=== PATIENT | female | born 1955 | race African-American/Black ===

== ENCOUNTER 2017-08-07 07:41 | Inpatient (IN) ==
[2017-08-07] MEDS ORDERED: DILTIAZEM 50 MG/10 ML VIAL IV STA ×2 (07:59→09:28)
[2017-08-07] MEDS ORDERED: ONDANSETRON 4 MG/2 ML VIAL IV STA (07:59)
[2017-08-07] MEDS ORDERED: ONDANSETRON 4 MG/2 ML VIAL ONE (08:04)
[2017-08-07] MEDS ORDERED: DILTIAZEM 50 MG/10 ML VIAL IV ONE (08:04)
[2017-08-07 08:27] LABS: Basophils % 0.3 % (0.0-0.8); Eosinophils # 0.1 10*3/uL (0.0-0.87); Eosinophils % 0.4 % (0.00-10.9); Hematocrit 34.8 VOL% (35.7-47.0); Hemoglobin 11.4 GM/DL (12.0-16.0); Immature Granulocytes % 0.8 %; Immature Granulocytes Absolute 0.09 #; Lymphocytes # 0.7 10*3/uL (1.4-4.0); Lymphocytes % 5.9 % (21.3-54.2); Mean Corpuscular HGB Conc 32.8 GM/DL (32-36); Mean Corpuscular Hemoglobin 28 PG (27-34); Mean Corpuscular Volume 85.1 FL (87-102); Mean Platelet Volume 10.4 FL (9.6-12.0); Monocytes # 0.7 10*3/uL (0.11-0.8); Monocytes % 6.6 % (1.7-12.7); Neutrophils # 9.6 10*3/uL (1.4-7.4); Platelet Count 241 T/CUMM (130-400); Red Blood Count 4.09 MC/CUMM (3.8-5.5); Red Cell Distribution Width 16.9 % (9.3-17.3); White Blood Count 11.1 T/CUMM (4-12)
--- NOTE | 2017-08-07 08:44 | XRay Report ---
Portable chest Date: 08/07/2017 Clinical history: Shortness of breath Comparison: 07/13/2015 Technique: Portable AP sitting chest Findings: Stable cardiomegaly in patient with prior median sternotomy and cardiac valve replacement. Persistent dilatation and uncoiling of the aorta with left subclavian atrioventricular AICD. Prominent scoliosis with associated deformity of the chest. No significant change in the appearance the lungs. Postoperative findings in the right axilla. Impression: No significant change in the appearance of the chest when compared to previous exam. Persistent cardiomegaly in patient with prior median sternotomy and cardiac valvuloplasty. Residual dilatation and uncoiling of the aorta in patient with known chronic aortic dissection. Stable left subclavian atrioventricular AICD. PROCEDURE INTERPRETED AT [facility] DEPARTMENT OF RADIOLOGY Final Report Signed by: Dr. Chanel Torres
[2017-08-07 08:46] LABS: PT Patient Result 199.3 SECS
[2017-08-07 08:48] LABS: INR > 20.0
[2017-08-07 08:50] LABS: Alanine Aminotransferase 13 U/L (13-56); Albumin 3.2 G/DL (3.4-5.0); Alkaline Phosphatase 110 U/L (45-117); Aspartate Amino Transferase 23 U/L (0-37); Blood Urea Nitrogen 19 MG/DL (7-18); Calcium 9.6 MG/DL (8.5-10.1); Glucose 114 MG/DL (74-106); Osmolality,Calculated 277.7 MOS/KG (273-304); Potassium 3.7 MMOL/L (3.5-5.1); Sodium 138 MMOL/L (136-145); Total Protein 8.2 G/DL (6.4-8.3); Troponin I Only < 0.015 NG/ML (0.00-0.045)
[2017-08-07] MEDS ORDERED: PHYTONADIONE 10 MG/1 ML AMP SUBCUT STA (08:55)
--- NOTE | 2017-08-07 09:12 | Emergency Department Note ---
Basil Menendez Emily, am scribing for, and in the presence of, Paulino Byrne MD 08:04. Chavez Menendez Phillip K, MD, personally performed the services described in this documentation, ascribed by Jeni Gracia in my presence, and it is both accurate and complete 912 . 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 Mode of Arrival: Stretcher Limitations: No Limitations Source: Patient - History of Present Illness HPI Narrative: Pt is a 62 y/o female who came to ED by EMS with c/o N/V/D that started 2 days ago. Pt reports stools are twice a day and loose but not watery and denies fever. Pt has pacemaker/defibrillator, AAA, and is on Coumadin and lanoxin. Pt denies smoking, eating any recent bad food, and abdomen pain. Pt takes daily medications but was unable to take them this morning. Pt also sees Dr. Leonard for scoliosis in which takes pain medication as needed. PMHx of Marfan syndrome, Afib with RVR, mitral valve replacement in 1998. Onset (ago): day(s) Consistency: constant Severity: mild, moderate Severity scale (1-10): 4 Quality: other (vomiting) Allergies/Adverse Reactions: Allergies Allergy/AdvReac Type Severity Reaction Status Date / Time No Known Allergies Allergy Verified 08/07/17 07:47 Home Medications: Home Medications Medication Instructions Recorded Confirmed Type Ascorbic Acid Tab [Vitamin C Tab] 1,000 mg PO BID tablet 07/13/15 06/10/17 Rx Atenolol [Tenormin] 100 mg PO DAILY #30 tablet 07/13/15 06/10/17 Rx Digoxin Tab [Lanoxin Tab] 0.125 mg PO DAILY@1300 07/13/15 06/10/17 History Fluticasone 50 Mcg Nasal [place] 2 spray BOTH NARES DAILY 07/13/15 06/10/17 History [Flonase Nasal [place]] Gabapentin 100 mg PO DAILY 07/13/15 06/10/17 History Hydrocodone/Acetaminophen 1 each PO Q6-8H PRN 07/13/15 06/10/17 History [Hydrocodon-Acetaminophen 5-300] Lisinopril 10 mg PO DAILY 07/13/15 06/10/17 History Potassium Chloride Cap/Tab [Micro 8 meq PO BID #60 capsule 07/13/15 06/10/17 Rx K] Promethazine/Phenyleph/Codeine 5 ml PO Q4H PRN 07/13/15 06/10/17 History [Promethazine VC/Codeine Syrup] Spironolactone [Aldactone] 25 mg PO DAILY #30 tablet 07/13/15 06/10/17 Rx Warfarin [Coumadin] 4 mg PO DAILY@1800 07/13/15 06/10/17 History dilTIAZem HCl [Diltiazem 24Hr ER] 240 mg PO DAILY 07/13/15 06/10/17 History tiZANidine [Zanaflex] 4 mg PO DAILY 07/13/15 06/10/17 History Oxycodone HCl/Acetaminophen 1 tablet PO BID 07/14/15 06/10/17 History [Oxycodone-Acetaminophen 10-325] Review of System - Review of System 12 point system: reviewed and no additional remarkable complaints except as stated - Review of System Constitutional: Absent: chills, fever Respiratory: Absent: respiratory distress Cardiovascular: Absent: chest pain Gastrointestinal: Present: nausea, vomiting, diarrhea (loose stools, not watery and twice a day). Absent: abdominal pain Genitourinary female: Absent: dysuria Musculoskeletal: Absent: arm pain, neck pain Skin: Absent: rash Neurological: Absent: headache Medical,Surgical,& Family Hx - Medical History HEENT: History of: Eye Problem (CATARACT LENS ON RIGHT EYE) Musculoskeletal: History of: Back/Neck Problems (SCOLIOSIS) - Surgical History Reproductive Surgeries: Surgical HX of;: Hysterectomy (FULL) - Family History Family History: Reports;: Family Cancer (MOTHER-LUNG CA), Family Heart Disease ( BROTHERS AND SISTERS) - Social History Smoking Status: Never smoker Frequency of Alcohol Use: None Type of Drug Use: None Marital Status: Single Lives With:: Alone Functional capacity: independent ambulation Exam Vital Signs: Vital Signs Temperature 97.9 F 08/07/17 07:39 Pulse Rate 103 H 08/07/17 07:39 Respiratory Rate 18 08/07/17 07:39 Blood Pressure 122/90 08/07/17 07:51 O2 Sat by Pulse Oximetry 93 L 08/07/17 07:39 - General General appearance: alert, in no apparent distress - Head Head exam: Present: atraumatic, normocephalic - Eye Eye exam: Present: PERRL, EOMI - ENT ENT exam: Present: mucous membranes moist. Absent: mucous membranes dry - Neck Neck exam: Present: full ROM - Chest Chest inspection: Present: symmetric chest wall rise - Respiratory Respiratory exam: Present: normal lung sounds bilaterally. Absent: respiratory distress - Cardiovascular Cardiovascular exam: Present: tachycardia, irregular rhythm, clicks (loud) - Abdominal Exam Abdominal exam: Present: soft. Absent: tenderness - Extremities Exam Extremities exam: Present: full ROM. Absent: pedal edema - Neurological Exam Neurological exam: Present: alert, oriented X3, CN II-XII intact - Psychiatric Psychiatric exam: Present: normal affect, normal mood - Skin Skin exam: Present: warm, dry Course Course Narrative: Patient will be admitted to the hospitalist. We have ordered vitamin K and fresh frozen plasma. Results - Labs CBC & BMP: 08/07/17 08:07 08/07/17 08:07 Lab Results: I have reviewed the patients labs Labs: Laboratory Tests 08/07/17 08:07 WBC 11.1 RBC 4.09 Hgb 11.4 L Hct 34.8 L MCV 85.1 L Plt Count 241 Neut % (Auto) 86.0 H Lymph % (Auto) 5.9 L Neut # (Auto) 9.6 H Lymph # (Auto) 0.7 L - Diagnostic Findings Procedure: Chest x-ray: report reviewed by me (No significant change in the appearance of the chest when compared to previous exam. Persistent cardiomegaly in the pt with prior median sternotomy and cardiac valvuloplasty. Residual dilatation and uncoiling of the aorta in pt with known chronic aortic dissection. Stable left subclavian atrioventricular AICD.) Disposition Clinical Impression: Coumadin toxicity, Vomiting Case discussed with: patient Disposition: Still a Patient Condition: Guarded Additional Instructions: Admit to the hospitalist.
[2017-08-07] MEDS ORDERED: PHYTONADIONE 10 MG/1 ML AMP ONE (09:33)
[2017-08-07 09:37] LABS: Apearance,Urine Slightly Hazy (Clear); Bacteria,Urine Occasional /HPF (Few); Bilirubin,Urine Negative (Negative); Blood, Urine Moderate mg/dL (Negative); Glucose,Urine (UA) Negative (Negative); Hyaline Casts,Urine 2 /LPF (0-3); Ketones,Urine Negative (Negative); Mucus,Urine Occasional /LPF (Occasional); Nitrite,Urine Negative (Negative); Protein,Urine 30 MG/DL; RBC,Urine 12 /HPF (0-4); Squamous Epithelial Cell,Urine Occasional /HPF (0-10); Urine Color Yellow (Yellow); Urine Specific Gravity 1.018 (1.001-1.035); Urine Urobilinogen < 2.0 EU/DL (0.2-1.0); WBC,Urine 1 /HPF (0-6)
--- NOTE | 2017-08-07 09:58 | Hospitalist History & Physical ---
<Kevin Larson - Last Filed: 08/07/17 09:39> Assessment and Plan - Time spent with patient Time spent with patient: Greater than 30 minutes (1) Atrial fibrillation with RVR Status: Acute Assessment and plan: Patient has a history of atrial fibrillation with RVR. She is chronically anticoagulated with warfarin. However patient was unable to tell me if she takes any rate controlling agents. She has been given 20 mg of diltiazem in the ED. We will give 0.5 mg of digoxin IV and start her on a diltiazem drip. She will be admitted to the ICU for close observation. (2) Marfan syndrome Status: Chronic Assessment and plan: Patient tells me she was diagnosed with Marfan syndrome in 1999. She does have 2 mechanical valve replacement and has been fairly well controlled with Coumadin. She tells me that her INR is generally between 3 and 4. She has developed a AAA. Will order an echocardiogram and abdominal ultrasound to confirm. Patient is followed by Dr. Gavino Villanueva as well as Dr. Champion at [facility]. (3) History of mitral valve replacement with mechanical valve Status: Acute Assessment and plan: Patient is a mechanical mitral valve secondary to Marfan syndrome. (4) History of mechanical aortic valve replacement Status: Acute Assessment and plan: Patient has a mechanical aortic valve secondary to Marfan syndrome. (5) Chronic anticoagulation Status: Chronic Assessment and plan: Patient is chronically anticoagulated with Coumadin secondary to mechanical valve replacement. She tells me she takes 4 mg M-F and 2 mg every Saturday and Saturday. (6) History of placement of internal cardiac defibrillator Status: Acute Assessment and plan: Secondary to ischemic cardiomyopathy. Patient is routinely followed by Dr. Gavino Villanueva. Will consult cardiology for assistance. (7) Coumadin toxicity Status: Acute Assessment and plan: INR greater than 20 on admission. Patient has been given 10 mg subcu of vitamin K and has been started on FFP in the ED. Of note, the patient was recently hospitalized at [facility] by 3 weeks ago and was likely getting some antibiotics while the year. This could elevate her INR levels. We will continue to treat and repeat INR daily. (8) Scoliosis Status: Acute Assessment and plan: Patient has a long history of scoliosis which contributes to chronic back pain. She is followed by Dr. sheets for pain management. History of Present Illness Chief complaint: N/V/D, fatigue History of present illness: Ms. Walter is a 62 year old -English female with a past medical history significant for Marfan syndrome, hypertension, hyperlipidemia, atrial fibrillation with RVR, abdominal aortic aneurysm, scoliosis who presents to the ED today via EMS with complaints of decreased appetite, nausea vomiting and diarrhea, and generalized fatigue having onset 3 days ago. Patient reports she has both an aortic and mitral valve mechanical replacement secondary to Marfan syndrome. She also has a AAA which, according to her associate sales representative at [facility], she is not currently a candidate for surgical repair due to malnutrition. Patient states that she has been worried about her heart condition as well as needing to gain enough weight to be able to undergo surgical repair. She comes in today complaining of decreased appetite with associated lightheadedness, nausea , vomiting and diarrhea. She states she has not been able to take any of her medications this morning due to her nausea. On exam, the patient is severely malnourished and in atrial fibrillation with RVR. She does not appear to be any acute medical distress. She denies any headache, chest pain, shortness of breath, blurry vision, abdominal pain, lower extremity edema. She does however complain of back pain related to her scoliosis. Patient is followed by a PCP in [place]. Dr. Gavino Villanueva is her primary associate sales representative. And a Dr. Champion, director cardiac, at [facility]. Patient's lab work is as follows: WBC 11.1, hemoglobin 11.4, hematocrit 34.8, platelets 241, INR > 20, BUN 19, creatinine 0.90, serum glucose 114, albumin 3.2, troponin I < 0.015. Urinalysis negative for infection. Digoxin level was within normal limits. This case has been discussed both with Dr. Byrne, ER physician, and Dr. Lezama , admitting physician, and patient will be admitted to the hospital medicine service for further evaluation and treatment. CODE STATUS has been discussed; patient is a full code. Home medications have been reviewed and reconciled. Home Medications Medication Instructions Recorded Confirmed Type Ascorbic Acid Tab [Vitamin C Tab] 1,000 mg PO BID tablet 07/13/15 08/07/17 Rx Digoxin Tab [Lanoxin Tab] 0.125 mg PO DAILY@1300 07/13/15 08/07/17 History Fluticasone 50 Mcg Nasal [place] 2 spray BOTH NARES DAILY PRN 07/13/15 08/07/17 History [Flonase Nasal [place]] Lisinopril 10 mg PO QPM 07/13/15 08/07/17 History Warfarin [Coumadin] 4 mg PO MOTUWETHFR@1800 07/13/15 08/07/17 History dilTIAZem HCl [Diltiazem 24Hr ER] 240 mg PO QPM 07/13/15 08/07/17 History Oxycodone HCl/Acetaminophen 1 tablet PO BID 07/14/15 08/07/17 History [Oxycodone-Acetaminophen 10-325] Amiodarone Tab [Cordarone Tab] 200 mg PO QPM 08/07/17 08/07/17 History Atenolol [Tenormin] 100 mg PO QPM 08/07/17 08/07/17 History Cyanocobalamin Inj [Vitamin B12 1,000 mcg IM Q14D 08/07/17 08/07/17 History Inj] Potassium Chloride Cap/Tab [Micro 8 meq PO QPM 08/07/17 08/07/17 History K] Spironolactone [Aldactone] 25 mg PO QPM 08/07/17 08/07/17 History Warfarin [Coumadin] 2 mg PO SUSA@1800 08/07/17 08/07/17 History Allergies Allergy/AdvReac Type Severity Reaction Status Date / Time No Known Allergies Allergy Verified 08/07/17 07:47 Medical,Surgical,& Family Hx - Medical History HEENT: History of: Eye Problem (CATARACT LENS ON RIGHT EYE) Musculoskeletal: History of: Back/Neck Problems (SCOLIOSIS) - Surgical History Reproductive Surgeries: Surgical HX of;: Hysterectomy (FULL) - Family History Family History: Reports;: Family Cancer (MOTHER-LUNG CA), Family Heart Disease ( BROTHERS AND SISTERS) - Social History Smoking Status: Never smoker Frequency of Alcohol Use: None Type of Drug Use: None Marital Status: Lives With:: Spouse Functional capacity: independent ambulation - Constitutional Constitutional: Present: anorexia, fatigue, weight loss. Absent: headache(s) - EENT Eyes: Absent: blurry vision, loss of vision Ears: Absent: decreased hearing, ear pain Nose, mouth and throat: Absent: headache(s), sore throat, vertigo - Cardiovascular Cardiovascular: Absent: chest pain at rest, chest pain with activity, dyspnea, dyspnea on exertion, edema - Respiratory Respiratory: Absent: cough, wheezing, pain on inspiration - Gastrointestinal Gastrointestinal: Present: change in bowel habits, diarrhea, nausea, vomiting. Absent: abdominal pain - Genitourinary Genitourinary: Absent: dysuria, flank pain - Musculoskeletal Musculoskeletal: Present: arthralgias, back pain - Neurological Neurological: Absent: dizziness, numbness, syncope - Psychiatric Psychiatric: Present: anxiety, depression - Endocrine Endocrine: Present: cold intolerance, fatigue - Hematologic/Lymphatic Hematologic/Lymphatic: Present: easy bleeding, easy bruising Exam - Constitutional Vitals: Period Temp Pulse Resp BP Sys/Eli Pulse Ox Last 24 Hr 97.9 F-97.9 F 103-103 18-18 122-139/90-108 93 General appearance: no acute distress, under weight - Head Head exam: Present: normal inspection, normocephalic, atraumatic - Eye Eye exam: Present: EOMI Pupils: Present: SLIME - Neck Neck exam: Present: normal inspection. Absent: lymphadenopathy, thyromegaly - Respiratory Respiratory exam: Present: clear to auscultation bilaterally. Absent: chest wall tenderness, rales, rhonchi, wheezes - Cardiovascular Cardiovascular exam: Present: irregular rhythm, tachycardia. Absent: carotid bruit - GI/Abdominal GI/Abdominal exam: Present: normal bowel sounds, soft. Absent: mass, tenderness - Extremities Exam Extremities exam: Present: normal inspection, normal capillary refill. Absent: edema - Back Exam Back exam: Present: normal inspection. Absent: CVA tenderness (L), CVA tenderness (R) - Neurological Exam Neurological exam: Present: alert, oriented X3, CN II-XII intact, reflexes normal - Psychiatric Psychiatric exam: Present: normal affect, normal mood - Skin Skin exam: Present: normal color, warm, dry. Absent: erythema Results - Labs CBC & BMP: 08/07/17 08:07 08/07/17 08:07 Lab Results: I have reviewed the past 24 hour labs <Toya Lezama - Last Filed: 08/07/17 10:35> Assessment and Plan (1) Atrial fibrillation with RVR Status: Acute Assessment and plan: cont amiodarone, dig, dilt drip and metoprolol succinate, (2) Nonischemic cardiomyopathy Status: Chronic Assessment and plan: echo (3) Marfan syndrome Status: Chronic Assessment and plan: has chronic aortic dissection which needs to be repaired at [facility] when she gains weight (4) Valvular heart disease Status: Chronic Assessment and plan: aortic and mitral valve replacement, keep inr 2.5 to 3.5 (5) Thoracic aortic aneurysm Status: Acute Assessment and plan: chronic to be repaired at [facility] when able to gain weight (6) Supratherapeutic INR Status: Acute Assessment and plan: vitamin K and FFP, recheck inr at 1500 (7) Severe malnutrition Status: Acute Assessment and plan: home care chaplain to see History of Present Illness History of present illness: Ms. Walter is a 62 year old female seen and examined. Severe malnutrition will get surg for AAA when able to gain weight. Patient was given abx while at [facility] for a UTI which affect her coumadin. Vitamin K 10 mg SQ given in ER and ordered 2 units of FFP which have not been given. Agree with above. Home meds have been reviewed and reconciled. - Neurological Neurological: Present: frequent falls, other (generalized weakness). Absent: focal weakness Exam - Constitutional Vitals: Period Temp Pulse Resp BP Sys/Eli Pulse Ox Last 24 Hr 97.9 F-97.9 F 97-109 18-20 105-139/76-108 93-100 Exam: severe malnutrition - Eye Eye exam: Absent: scleral icterus Pupils: Present: normal accommodation - ENT ENT exam: Present: normal exam, normal external ear exam - GI/Abdominal GI/Abdominal exam: Present: other (aorta is enlarged with bruit ) Results - Labs CBC & BMP: 08/07/17 08:07 08/07/17 08:07 - Diagnostic Findings Procedure: Chest x-ray: report reviewed by me (Cm with cardiac aortic dissection )
[2017-08-07] MEDS ORDERED: DIGOXIN 0.5 MG/2 ML AMP IV STA (10:01)
[2017-08-07] MEDS ORDERED: SODIUM CHLORIDE 0.9% 250 ML IV PRN (10:30)
[2017-08-07] MEDS ORDERED: FLUTICASONE 50 MCG NASAL SPRAY 16 GM BOTTLE BOTH NARES PRN (10:40)
[2017-08-07] MEDS ORDERED: ACETAMINOPHEN 325 MG TABLET PO PRN (10:40)
[2017-08-07 11:42] LABS: Magnesium 2.2 MG/DL (1.8-2.4); Thyroid Stimulating Hormone < 0.005 uIU/ml (0.358-3.74)
--- NOTE | 2017-08-07 11:45 | CT Report ---
CT of the head without contrast. Indication: Headache. There is calcific plaque present within the intracranial internal carotid arteries and vertebral arteries. The ventricles and sulci are normally prominent for the patient's age. There is no mass effect, midline shift, or area of hemorrhage. No cortical infarct is seen. At to the posterior convexity of the calvarium, there are 2 small lucent defects, with benign features. It is possible that these represent old nestor holes, versus normal variation. The included paranasal sinuses and the mastoid air cells are clear. Impression: No acute intracranial process is seen. The CT exam was performed using one or more of the following dose reduction techniques: Automated exposure control, adjustment of the mA and/or kV according to patient size, or use of iterative reconstruction technique. PROCEDURE INTERPRETED AT [facility] DEPARTMENT OF RADIOLOGY Final Report Signed by: Dr. Libertad Skelton
[2017-08-07] MEDS: ONDANSETRON 4 MG/2 ML VIAL IV PRN (13:18)
[2017-08-07] MEDS: METOPROLOL SUCCINATE XL 25 MG TABLET PO SCH (15:07)
[2017-08-07] MEDS: PANTOPRAZOLE 40 MG TABLET PO SCH (15:08)
[2017-08-07 16:05] LABS: INR 6.2
--- NOTE | 2017-08-07 16:47 | Order Completion Report ---
See report scanned to EMR
[2017-08-07] MEDS: SODIUM CHLORIDE 0.9% 1,000 ML IV SCH ×2 (19:00→21:11)
[2017-08-07] MEDS: AMIODARONE 200 MG TABLET PO SCH (20:32)
[2017-08-07] MEDS: oxyCODONE/ACETAMINOPHEN 5-325 MG TABLET PO SCH (20:32)
[2017-08-07] MEDS: DILTIAZEM INJ 100 MG in SODIUM CHLORIDE 0.9% 100 ML IV SCH (21:10)
[2017-08-08] MEDS: SODIUM CHLORIDE 0.9% 1,000 ML IV SCH ×2 (03:00→17:00)
[2017-08-08 05:00] LABS: Basophils # 0.1 10*3/uL (0.0-0.2); Basophils % 0.6 % (0.0-0.8); Eosinophils # 0.2 10*3/uL (0.0-0.87); Eosinophils % 2.8 % (0.00-10.9); Hematocrit 28.4 VOL% (35.7-47.0); Hemoglobin 8.9 GM/DL (12.0-16.0); Immature Granulocytes % 0.5 %; Immature Granulocytes Absolute 0.04 #; Lymphocytes # 1.2 10*3/uL (1.4-4.0); Lymphocytes % 13.8 % (21.3-54.2); Mean Corpuscular HGB Conc 31.3 GM/DL (32-36); Mean Corpuscular Hemoglobin 28 PG (27-34); Mean Corpuscular Volume 88.2 FL (87-102); Mean Platelet Volume 10.2 FL (9.6-12.0); Monocytes # 0.8 10*3/uL (0.11-0.8); Monocytes % 9.1 % (1.7-12.7); Neutrophils # 6.3 10*3/uL (1.4-7.4); Neutrophils % 73.2 % (38.7-73.9); Platelet Count 183 T/CUMM (130-400); Red Blood Count 3.22 MC/CUMM (3.8-5.5); White Blood Count 8.6 T/CUMM (4-12)
[2017-08-08 05:30] LABS: INR 2.8
[2017-08-08 05:34] LABS: Calcium 8.2 MG/DL (8.5-10.1); Risk Ratio 2.64; VLDL CHOLESTEROL 9.2 MG/DL
[2017-08-08 05:43] LABS: PT Patient Result 28.2 SECS
[2017-08-08] MEDS: ONDANSETRON 4 MG/2 ML VIAL IV PRN ×2 (06:41→17:54)
[2017-08-08] MEDS: METOPROLOL SUCCINATE XL 25 MG TABLET PO SCH (08:42)
[2017-08-08] MEDS: PANTOPRAZOLE 40 MG TABLET PO SCH (08:42)
[2017-08-08] MEDS: oxyCODONE/ACETAMINOPHEN 5-325 MG TABLET PO SCH ×2 (08:42→20:47)
--- NOTE | 2017-08-08 11:11 | Hospitalist Progress Note ---
Assessment and Plan (1) Atrial fibrillation with RVR Status: Acute Assessment and plan: cont amiodarone, metoprolol succinate Current Visit: No (2) Nonischemic cardiomyopathy Status: Chronic Assessment and plan: echo shows an EF of 40% with severely dilated left and right atrium. Well- seated mechanical aortic aortic valve replacement in well-seated mechanical mitral valve replacement. She has severe TR with pulmonary hypertension that is severe at 62 Current Visit: No (3) Marfan syndrome Status: Chronic Assessment and plan: has chronic aortic dissection which needs to be repaired at [facility] when she gains weight Current Visit: No (4) Valvular heart disease Status: Chronic Assessment and plan: aortic and mitral valve replacement, INR is down to 2.8 today with vitamin K and FFP, restart Coumadin at home dose Current Visit: No (5) Thoracic aortic aneurysm Status: Acute Assessment and plan: chronic to be repaired at [facility] when able to gain weight Current Visit: No (6) Supratherapeutic INR Status: Acute Assessment and plan: Resolved Current Visit: Yes (7) Severe malnutrition Status: Acute Assessment and plan: Supplement with Ensure Current Visit: Yes (8) Hyperthyroidism Status: Acute Assessment and plan: Ptu, free t4 and stress dose steroids Current Visit: Yes Hospitalist: Subjective Interval history: Patient is on not on the diltiazem drip. Patient is rate controlled with amiodarone and metoprolol. Her INR is better today at 2.8 patient will be moved out of the ICU into telemetry. I have discussed her case with pharmacy and they recommend restarting her home dose of warfarin. Patient also has clearly has hyperthyroidism which is driving this A. fib with rapid ventricular response and I will start her on a stress dose of steroids in addition to PTU. Exam - Constitutional Vitals: Period Temp Pulse Resp BP Sys/Eli Pulse Ox Last 24 Hr 97.8 F-100.1 F 65-126 12-29 79-134/50-77 91-100 Exam: Heart Rate-[IRR] Lungs-[CTAB] GI-[+bs soft, NT] Ext-[no edema] Eyes proptosis Neuro [Motor 5/5], [alert and oriented times 3] psych [normal mood and affect] General [no acute distress] Results - Labs CBC & BMP: 08/08/17 03:49 10/12/17 03:49 Lab Results: I have reviewed the past 24 hour labs Labs: Urine culture no growth
[2017-08-08] MEDS: PROPYLTHIOURACIL 50 MG TABLET PO SCH ×3 (14:08→20:47)
[2017-08-08] MEDS: DIGOXIN 0.125 MG TABLET PO SCH (14:09)
[2017-08-08] MEDS: HYDROCORTISONE 100 MG VIAL IV SCH ×2 (14:10→20:47)
[2017-08-08] MEDS: DILTIAZEM INJ 100 MG in SODIUM CHLORIDE 0.9% 100 ML IV SCH (17:00)
[2017-08-08] MEDS: WARFARIN 4 MG TABLET PO SCH (17:28)
[2017-08-08] MEDS: AMIODARONE 200 MG TABLET PO SCH (20:47)
[2017-08-09] MEDS: HYDROCORTISONE 100 MG VIAL IV SCH ×3 (04:13→16:36)
[2017-08-09 07:56] LABS: INR 1.7; PT Patient Result 17.4 SECS
[2017-08-09] MEDS: PANTOPRAZOLE 40 MG TABLET PO SCH (09:23)
[2017-08-09] MEDS: METOPROLOL SUCCINATE XL 25 MG TABLET PO SCH (09:23)
[2017-08-09] MEDS: oxyCODONE/ACETAMINOPHEN 5-325 MG TABLET PO SCH ×2 (09:23→21:12)
[2017-08-09] MEDS: PROPYLTHIOURACIL 50 MG TABLET PO SCH ×3 (09:23→21:12)
[2017-08-09] MEDS: ONDANSETRON 4 MG/2 ML VIAL IV PRN (14:00)
[2017-08-09] MEDS: DIGOXIN 0.125 MG TABLET PO SCH (14:09)
--- NOTE | 2017-08-09 15:35 | Hospitalist Progress Note ---
Assessment and Plan (1) Atrial fibrillation with RVR Status: Acute Assessment and plan: cont amiodarone, metoprolol succinate Current Visit: No (2) Nonischemic cardiomyopathy Status: Chronic Assessment and plan: echo shows an EF of 40% severe pulmonary hypertension Current Visit: No (3) Marfan syndrome Status: Chronic Assessment and plan: has chronic aortic dissection which needs to be repaired at [facility] when she gains weight Current Visit: No (4) Valvular heart disease Status: Chronic Assessment and plan: aortic and mitral valve replacement, INR is down to 1.7 we will add Lovenox until Coumadin is therapeutic Current Visit: No (5) Thoracic aortic aneurysm Status: Acute Assessment and plan: chronic to be repaired at [facility] when able to gain weight Current Visit: No (6) Supratherapeutic INR Status: Acute Assessment and plan: Resolved Current Visit: Yes (7) Severe malnutrition Status: Acute Assessment and plan: Supplement with Ensure Current Visit: Yes (8) Hyperthyroidism Status: Acute Assessment and plan: Free T4 is elevated to 1.92, continue PTU, lower stress dose steroids random cortisol 16.1 Current Visit: Yes Hospitalist: Subjective Interval history: Patient fell that she was not ready to go home today. She has not required a diltiazem drip. Her A. fib is rate controlled. Her INR is down to 1.7 today. We will add some Lovenox until her Coumadin is therapeutic. We will get PT and OT to see her. She no longer requires oxygen. She has severe hyperthyroidism which is causing the majority of her problems. I have discussed with case management that she will need some home PT. We are trying to get her set up with an saas architect in [place]. Exam - Constitutional Vitals: Period Temp Pulse Resp BP Sys/Eli Pulse Ox Last 24 Hr 97.1 F-98.1 F 73-93 16-18 107-123/65-84 94-99 Exam: Heart Rate-[IRR] Lungs-[CTAB] GI-[+bs soft, NT] Ext-[no edema] Eyes proptosis Neuro [Motor 5/5], [alert and oriented times 3] psych [normal mood and affect] General [no acute distress] Results - Labs CBC & BMP: 08/08/17 03:49 08/08/17 03:49 Lab Results: I have reviewed the past 24 hour labs Labs: Urine culture negative no growth
[2017-08-09] MEDS: ENOXAPARIN 40 MG/0.4 ML SYRINGE SUBCUT SCH (16:37)
[2017-08-09] MEDS: WARFARIN 4 MG TABLET PO SCH ×2 (16:39→19:46)
[2017-08-09] MEDS: AMIODARONE 200 MG TABLET PO SCH (21:12)
[2017-08-10] MEDS: HYDROCORTISONE 100 MG VIAL IV SCH (04:13)
[2017-08-10] MEDS: ENOXAPARIN 40 MG/0.4 ML SYRINGE SUBCUT SCH ×2 (04:13→14:37)
[2017-08-10 04:16] LABS: INR 1.7; PT Patient Result 17.4 SECS
[2017-08-10 07:37] VITALS: BP 100/64
[2017-08-10] MEDS: PROPYLTHIOURACIL 50 MG TABLET PO SCH ×2 (09:09→14:36)
[2017-08-10] MEDS: oxyCODONE/ACETAMINOPHEN 5-325 MG TABLET PO SCH (09:10)
[2017-08-10] MEDS: PANTOPRAZOLE 40 MG TABLET PO SCH (09:11)
[2017-08-10] MEDS: METOPROLOL SUCCINATE XL 25 MG TABLET PO SCH (09:12)
--- NOTE | 2017-08-10 09:44 | Discharge Summary ---
Hospital Course - Hospital Course Hospital Course: 62 year old -[place] female with a past medical history significant for Marfan syndrome, hypertension, hyperlipidemia, chronic atrial fibrillation, abdominal aortic aneurysm, scoliosis who presents to the ED today via EMS with complaints of decreased appetite, nausea vomiting and diarrhea, and generalized fatigue having onset 3 days ago. Patient reports she has both an aortic and mitral valve mechanical replacement secondary to Marfan syndrome. She also has a AAA which, according to her heat treating operator at [facility], she is not currently a candidate for surgical repair due to malnutrition. Dr. Gavino Villanueva is her primary heat treating operator. And a Dr. Champion, acquisition specialist, at [facility]. Patient's lab work is as follows: WBC 11.1, hemoglobin 11.4, hematocrit 34.8, platelets 241, INR > 20, BUN 19, creatinine 0.90, serum glucose 114, albumin 3.2, troponin I < 0.015. Urinalysis negative for infection. Digoxin level was within normal limits. Patient was given 1 dose of vitamin K and 2 units of FFP. Her INR dropped down to 2.8 then to 1.7. Patient has been started on Lovenox with Coumadin. Her supratherapeutic Coumadin was due to recent antibiotics while in the hospital at [facility]. Echocardiogram showed an EF of 40% with moderate dilation of the left and right atrium. Patient has severe pulmonary hypertension and no longer smokes. Patient's severe weight loss proptosis and nausea are secondary to hyperthyroidism. Patient was started on stress dose steroids and PTU. Patient's cortisol level was adequate and stress dose steroids were stopped. Patient initially had A. fib with rapid ventricular response. She is currently on amiodarone and we have added metoprolol XL. Her A. fib has been rate Controlled and she looks to be in sinus rhythm today. Patient is extremely weak and debilitated. We are sending her home with home health with the nurse and PT. Her INRs will be monitored. Dr. haas controls her Coumadin. Her iron levels are 39 but her ferritin levels are 245. Her hemoglobin mildly changed overnight and I discussed her case with Dr. Moy. Patient has high risk to stop Coumadin but definitely needs an outpatient GI workup. We will repeat her hemoglobin if stable she will be discharged home today. She needs an endocrine appointment within 2 weeks as she needs her thyroid radiated. She will be unable to gain weight without treatment of her hyperthyroidism. Patient denies any black tarry stools during her hospitalization. Patient needs follow-up with her primary care doctor, Dr. Reeder, Dr. Champion in endocrine doctor in [place]. director of social services has been helping to get that appointment in [place]. - Time spent with patient Time with patient DS: Greater than 30 minutes (45 min) Diagnosis - Discharge Diagnosis (1) Atrial fibrillation with RVR Status: Acute (2) Nonischemic cardiomyopathy Status: Chronic (3) Marfan syndrome Status: Chronic (4) Valvular heart disease Status: Chronic (5) Thoracic aortic aneurysm Status: Acute (6) Supratherapeutic INR Status: Acute (7) Severe malnutrition Status: Acute (8) Hyperthyroidism Status: Acute Specialty Discharge - Follow Up or Referrals Follow up with: Dr Akira [Other] - 2 Weeks Kaleb Reeder MD [Physician] - 2 Weeks Rito Helm [Physician] - 2 Weeks Discharge Plan - Discharge Data Disposition: Home Health Service Condition at Discharge: Stable Discharge Diet: heart healthy Activity: resume usual activities as tolerated, wear oxygen at all times Hygiene: no restrictions Weight Bearing at Discharge: full weight bearing - Discharge Medications New Enoxaparin [Lovenox] 40 mg SUBCUT Q12H #10 syringe Metoprolol Succinate Xl [Toprol Xl] 25 mg PO DAILY #30 tablet Propylthiouracil 100 mg PO TID #90 tablet Continue Digoxin Tab [Lanoxin Tab] 0.125 mg PO DAILY@1300 Warfarin [Coumadin] 4 mg PO MOTUWETHFR@1800 Fluticasone 50 Mcg Nasal Mouthcard [Flonase Nasal Mouthcard] 2 spray BOTH NARES DAILY PRN PRN Reason: Allergy Symptoms Ascorbic Acid Tab [Vitamin C Tab] 1,000 mg PO BID tablet Warfarin [Coumadin] 2 mg PO SUSA@1800 Amiodarone Tab [Cordarone Tab] 200 mg PO QPM Changed Oxycodone HCl/Acetaminophen [Oxycodone-Acetaminophen 10-325] 1 tablet PO BID PRN #20 tablet PRN Reason: Pain Discontinued Lisinopril 10 mg PO QPM dilTIAZem HCl [Diltiazem 24Hr ER] 240 mg PO QPM Potassium Chloride Cap/Tab [Micro K] 8 meq PO QPM Spironolactone [Aldactone] 25 mg PO QPM Cyanocobalamin Inj [Vitamin B12 Inj] 1,000 mcg IM Q14D Atenolol [Tenormin] 100 mg PO QPM - Follow Up or Referral Follow Up: Dr Akira [Other] - 2 Weeks Kaleb Reeder MD [Physician] - 2 Weeks Rito Helm [Physician] - [address] Nico [Other] - 2 Weeks - Forms/Instructions Instructions: Warfarin (By mouth) Additional Discharge Instructions: take coumadin 4 mg po daily for next 3 days then INR recheck on Saturday and called to her PMD. Goal for INR 2.5 to 3.5. Exam - Constitutional Vitals: Period Temp Pulse Resp BP Sys/Eli Pulse Ox Last 24 Hr 96.5 F-98.6 F 68-95 16-18 96-119/52-76 90-100 General appearance: no acute distress, under weight - Respiratory Respiratory exam: Present: clear to auscultation bilaterally. Absent: rhonchi, wheezes - Cardiovascular Cardiovascular exam: Present: regular rate and rhythm, systolic murmur - GI/Abdominal GI/Abdominal exam: Present: normal bowel sounds, soft. Absent: tenderness - Extremities Exam Extremities exam: Present: normal inspection, normal capillary refill - Neurological Exam Neurological exam: Present: alert, oriented X3 - Psychiatric Psychiatric exam: Present: normal affect, normal mood Discharge Results Procedures and tests throughout hospitalization: Pending Orders 08/07/17 08:56 Antibody Identification Stat FFP [Fresh Frozen Plasma] Stat Red Blood Cells Leuko Red Stat Type and Screen Stat Labs on day of discharge: Labs from last 24 hours 08/10/17 03:22 INR 1.7 PT Patient/Control Mix 17.4 DS: Provider Date of admission: 08/07/17 09:00 Primary care physician: . No PCP Attending physician on admission: Toya Lezama MD Consults: 08/07/17 10:28 Consult to Pharmacy [CONS] Routine Reason for Pharmacy Consult: Other Comment: coumadin, manage 08/07/17 15:47 Consult to Dietitian [CONS] Routine Reason for Dietitian: Supplements and/or Snacks Dietary Consult 08/09/17 15:31 Consult to Case Mgmt/Social Srvs [CONS] Routine Reason for Case Mgmt/Social Srvs: Other Consult Comment: meals on wheels home pt Consult to Occupational Therapy [CONS] Routine Reason for Occupational Therapy: Evaluate and Treat Consult to Physical Therapy [CONS] Routine Reason for Physical Therapy: Evaluate and Treat Discharging clinician: Toya Lezama MD
[2017-08-10] MEDS ORDERED: BISACODYL 10 MG SUPP RECTAL PRN (11:40)
[2017-08-10] MEDS: DIGOXIN 0.125 MG TABLET PO SCH (12:10)
[2017-08-10 13:10] LABS: % Iron Saturation 15.6 % (18-50); Ferritin 245.5 ng/ml (8-252)
[2017-08-10] MEDS ORDERED: WARFARIN 1 MG TABLET PO SCH (18:00)
== END 2017-08-10 15:19 | disposition home health service (06) | DRG 813 ==
LOC: N.ED 07:41 → N.EDINP 09:00 → N.ED 09:58 → N.EDINP 09:59 → N.ED 09:59 → N.CC 11:13 → N.TELEN 08-08 16:00
PROVIDERS: ADMIT Internal Medicine; ATTEND Internal Medicine

== ENCOUNTER 2018-01-08 18:03 | Inpatient (IN) ==
[2018-01-08] MEDS ORDERED: ONDANSETRON 4 MG/2 ML VIAL IV STA (18:29)
[2018-01-08] MEDS ORDERED: methylPREDNISolone SOD SUC 125 MG/2 ML VIAL IV STA (18:29)
[2018-01-08] MEDS ORDERED: LEVOFLOXACIN INJ 750 MG in PREMIX 1 EACH IV STA (18:29)
[2018-01-08] MEDS ORDERED: ALBUTEROL/IPRATROPIUM 3 ML NEB RESP TX STA (18:29)
[2018-01-08] MEDS ORDERED: methylPREDNISolone SOD SUC 125 MG/2 ML VIAL ONE (18:39)
[2018-01-08] MEDS ORDERED: LEVOFLOXACIN INJ 150 ML IV ONE (18:39)
[2018-01-08] MEDS ORDERED: ONDANSETRON 4 MG/2 ML VIAL ONE (18:39)
[2018-01-08 18:44] LABS: Hemoglobin 9.4 GM/DL (12.0-16.0); Immature Granulocytes % 0.7 %; Lymphocytes # 0.4 10*3/uL (1.4-4.0); Lymphocytes % 3.1 % (21.3-54.2); Mean Corpuscular HGB Conc 29.4 GM/DL (32-36); Mean Corpuscular Hemoglobin 27 PG (27-34); Mean Platelet Volume 10.5 FL (9.6-12.0); Monocytes # 1.2 10*3/uL (0.11-0.8); Monocytes % 8.8 % (1.7-12.7); Neutrophils # 12.1 10*3/uL (1.4-7.4); Neutrophils % 87.4 % (38.7-73.9); Platelet Count 349 T/CUMM (130-400); Red Blood Count 3.44 MC/CUMM (3.8-5.5); Red Cell Distribution Width 19.8 % (9.3-17.3); White Blood Count 13.8 T/CUMM (4-12)
[2018-01-08 19:07] LABS: Alanine Aminotransferase 15 U/L (13-56); Albumin 2.8 G/DL (3.4-5.0); Alkaline Phosphatase 108 U/L (45-117); Aspartate Amino Transferase 22 U/L (0-37); Blood Urea Nitrogen 19 MG/DL (7-18); Calcium 8.3 MG/DL (8.5-10.1); Glucose 117 MG/DL (74-106); Osmolality,Calculated 277.7 MOS/KG (273-304); Potassium 5.3 MMOL/L (3.5-5.1); Sodium 138 MMOL/L (136-145); Total Protein 7.1 G/DL (6.4-8.3); Troponin I Only 0.028 NG/ML (0.00-0.045)
[2018-01-08 19:12] LABS: PT Patient Result 84.4 SECS; Partial Thromboplastin Time 52.7 SECS (0-40)
[2018-01-08 19:15] LABS: INR 8.7
[2018-01-08] MEDS ORDERED: cefTRIAXone 2,000 MG in SODIUM CHLORIDE 0.9% 100 ML IV ONE (19:27)
[2018-01-08] MEDS ORDERED: cefTRIAXone 1,000 MG VIAL ONE (19:32)
[2018-01-08 19:59] LABS: Lymphocytes 5 % (20-55); Segmented Neutrophils 83 % (50-85); Total Cells Counted 100
[2018-01-08 20:00] LABS: Anisocytosis 1+; Hypochromasia 2+; Macrocytosis 1+; Platelet Estimate Normal
[2018-01-08] MEDS ORDERED: ONDANSETRON 4 MG/2 ML VIAL IV PRN (20:33)
[2018-01-08] MEDS ORDERED: ACETAMINOPHEN 325 MG TABLET PO PRN (20:33)
[2018-01-08] MEDS ORDERED: AZITHROMYCIN INJ 500 MG in SODIUM CHLORIDE 0.9% 250 ML IV SCH (23:00)
[2018-01-09] MEDS: ALBUTEROL/IPRATROPIUM 3 ML NEB RESP TX SCH ×4 (00:37→19:00)
[2018-01-09 02:19] LABS: Amorphous Crystals,Urine Occasional /HPF (Few); Apearance,Urine CLOUDY (Clear); Bacteria,Urine Occasional /HPF (Few); Bilirubin,Urine Negative (Negative); Blood, Urine Negative (Negative); Glucose,Urine (UA) Negative (Negative); Granular Casts,Urine 10 /LPF (0-1); Ketones,Urine 5 mg/dL (Negative); Mucus,Urine Occasional /LPF (Occasional); Nitrite,Urine Negative (Negative); Protein,Urine 30 MG/DL; RBC,Urine 4 /HPF (0-4); Squamous Epithelial Cell,Urine Occasional /HPF (0-10); Urine Color Yellow (Yellow); Urine Specific Gravity 1.019 (1.001-1.035); Urine Urobilinogen < 2.0 EU/DL (0.2-1.0); WBC,Urine 2 /HPF (0-6)
[2018-01-09 05:42] LABS: Hematocrit 31.1 VOL% (35.7-47.0); Hemoglobin 9.2 GM/DL (12.0-16.0); Immature Granulocytes Absolute 0.12 #; Lymphocytes # 0.2 10*3/uL (1.4-4.0); Lymphocytes % 1.5 % (21.3-54.2); Mean Corpuscular HGB Conc 29.6 GM/DL (32-36); Mean Corpuscular Hemoglobin 28 PG (27-34); Mean Corpuscular Volume 93.7 FL (87-102); Mean Platelet Volume 10.3 FL (9.6-12.0); Monocytes # 0.3 10*3/uL (0.11-0.8); Monocytes % 2.6 % (1.7-12.7); NRBC # 0.12 10*3/uL; Neutrophils # 11.1 10*3/uL (1.4-7.4); Neutrophils % 94.9 % (38.7-73.9); Platelet Count 361 T/CUMM (130-400); Red Blood Count 3.32 MC/CUMM (3.8-5.5); Red Cell Distribution Width 19.9 % (9.3-17.3); White Blood Count 11.7 T/CUMM (4-12)
[2018-01-09 06:02] LABS: PT Patient Result 104.3 SECS
[2018-01-09 06:05] LABS: INR 10.8
[2018-01-09] MEDS ORDERED: oxyCODONE/ACETAMINOPHEN 5-325 MG TABLET PO ONE ×2 (06:19→17:25)
[2018-01-09 06:21] LABS: Albumin 2.7 G/DL (3.4-5.0); Bilirubin,Total 0.5 MG/DL (0.2-1.0); Calcium 7.8 MG/DL (8.5-10.1); Osmolality,Calculated 279.8 MOS/KG (273-304); Potassium 5.9 MMOL/L (3.5-5.1); Total Protein 6.3 G/DL (6.4-8.3)
[2018-01-09 08:06] LABS: Hypochromasia 1+; Lymphocytes 3 % (20-55); Microcytosis 1+; Nucleated Red Blood Cells 1 (0-5); Polychromasia Slight; Segmented Neutrophils 94 % (50-85); Total Cells Counted 100
[2018-01-09 08:07] LABS: Platelet Estimate Normal; Target Cells Slight
[2018-01-09] MEDS ORDERED: PANTOPRAZOLE 40 MG TABLET PO SCH (09:00)
[2018-01-09] MEDS ORDERED: oxyCODONE/ACETAMINOPHEN 5-325 MG TABLET PO SCH ×2 (09:00→12:00)
[2018-01-09] MEDS ORDERED: PHYTONADIONE 10 MG/1 ML AMP IV ONE (10:18)
[2018-01-09] MEDS ORDERED: methIMAzole 10 MG TABLET PO SCH ×2 (12:00→21:00)
[2018-01-09 20:21] VITALS: BP 115/76
[2018-01-09] MEDS ORDERED: cefTRIAXone 1,000 MG in SYRINGE 1 EACH IV SCH (21:00)
[2018-01-10] MEDS ORDERED: AZITHROMYCIN 250 MG TABLET PO SCH (09:00)
== END 2018-01-09 19:40 | disposition hospice, home (50) | DRG 299 ==
LOC: EDUNIT# → N.ED 18:03 → N.EDINP 20:33 → N.2E 21:31 → N.ICU 01-09 17:46